=== PATIENT | male | born 1940 | race Caucasian/White ===

== ENCOUNTER → 2016-10-18 | Outpatient (CLI) | payer OTHER, MEDICARE ==
[~2016-10-18] MED LIST: COLACE100 MG PO; COUMADIN ** IA5 MG PO; FISH OIL 1,2001 EACH PO; K-TAB ER10 MEQ PO; LASIX40 MG PO; LIPITOR40 MG PO; MAG-OX-400(241400 MG PO; NORCO 5-325 TA1 EACH PO; TOPROL XL25 MG PO; TUMS REGULAR ST1 TAB PO; TYLENOL EXTRA500 MG PO; TYLENOL325 MG PO; ULTRAM50 MG PO; WARFARIN SODIU7.5 MG PO; ZOFRAN4 MG PO
[2016-10-18 17:50] LABS: ANION GAP 10.5 (10.0-19.0); BLOOD UREA NITROGEN 11 mg/dL (6-24); CALCIUM 8.4 mg/dL (8.5-10.5); CHLORIDE 99 mMol/L (96-110); CO2 28 mMol/L (22-32); CREATININE 0.6 mg/dL (0.6-1.3); ESTIMATED GFR (MDRD EQUATION) > 60; MAGNESIUM 2.3 mg/dL (1.3-2.6); POTASSIUM 4.5 mMol/L (3.7-5.1); SODIUM 133 mMol/L (135-145)
== END | disposition disaster alternative care site (69) ==
LOC: LNHI 17:24
PROVIDERS: Internal Medicine Cardiovascular Disease
DX: I50.22 Chronic systolic (congestive) heart failure (principal); I49.3 Ventricular premature depolarization

== ENCOUNTER 2017-04-01 20:04 | Inpatient (IN) | payer OTHER, MEDICARE ==
[~2017-04-01] VITALS: Ht 177.8 cm; Wt 91.2 kg
--- NOTE | ~2017-04-01 | HP ---
PATIENT'S NAME: OLI HOLCOMB [facility] AGE: 77 Y [address] ROOM: [address] [place], [place] [address] LOCATION: [facility] ADMIT DATE: 04/01/2017 History & Physical DISCHARGE DATE: FAMILY PHYSICIAN: Parviz Briseno MD ATTENDING PHYSICIAN: Meliton Camejo DATE OF SERVICE: CHIEF COMPLAINT: Right hip pain. HISTORY OF PRESENT ILLNESS: This 77-year-old male was out in his garden, tying up some plants, when he tripped and fell landing on a combination of dirt and cement on his right side. He had severe pain in the right groin and was unable to ambulate. He had no blackout spells, dizziness, headaches, blurred vision, or loss of consciousness. He was brought by ambulance to [facility] Emergency Room and evaluated by Dr. Su, where CT scan revealed a comminuted fracture of his right acetabulum. PAST MEDICAL HISTORY: Anticoagulated on Coumadin for atrial fibrillation, history of hypokalemia, hypertension, hypercholesterolemia. MEDICATIONS: 1. Fish oil. 2. Lasix. 3. Lipitor. 4. Magnesium. 5. Toprol. 6. Vitamin D. SOCIAL HISTORY: No recent smoking. Lives with his . FAMILY HISTORY: Positive for hypertension and heart trouble. REVIEW OF SYSTEMS: No recent coughs, cold, fevers, chills, or sore throats. No chest pain, shortness of breath, or trouble breathing. No nausea, vomiting, diarrhea, or constipation. No dysuria, hematuria, hesitancy, or incontinence. No malaise or fevers or skin changes. No audio or visual hallucinations. No psych problems. PATIENT'S NAME: OLI HOLCOMB [facility] AGE: 77 Y [address] ROOM: [id number] [place], [place] [address] LOCATION: [facility] ADMIT DATE: 04/01/2017 History & Physical DISCHARGE DATE: FAMILY PHYSICIAN: Parviz Briseno MD ATTENDING PHYSICIAN: Meliton Camejo SURGERIES: He has had a total knee arthroplasty. PHYSICAL EXAMINATION: GENERAL: He is awake, alert, and oriented x3. Mood and affect appropriate. In minimal distress. VITAL SIGNS: Blood pressure 118/72, pulse 67, respirations 16, temperature 98. HEENT: Atraumatic and normocephalic. PERRL. EOMI. TMs clear. Throat clear. NECK: Supple. CHEST: Clear to auscultation. HEART: Regular rhythm. ABDOMEN: Soft, nontender, without masses. SPINE: Cervical, thoracic, and lumbar spine nontender. EXTREMITIES: He has exquisite pain with movement of his right leg. There is tenderness in the groin, a little swelling, no bruising. NEUROLOGIC: He is alert and oriented. He has good sensation and motor function in lower extremities. Pulses good. Reflexes equal. No edema. IMAGING: CT scan of his lumbar spine shows no acute fractures, but there is a minimally displaced right acetabular fracture. CT of the pelvis demonstrates a comminuted right acetabular fracture with mild displacement. There is a large onel-pelvic hematoma consistent with the fracture. X-rays of the pelvis show comminuted right acetabular fracture with minimal displacement. Right superior and inferior pubic rami fractures. Lumbar spine CT scan shows compression deformity at the inferior endplate of L4, which appears chronic; bilateral L5 spondylolysis with grade 2 spondylolisthesis at L5-S1. No change from previous imaging. CT scan of the cervical spine shows no acute fractures. He has had a fusion at C3-C4 and degenerative changes at cervical multiple intervertebral levels. CT scan of the thoracic spine shows chronic compression fractures at T7 and T8 and degenerative changes throughout. IMPRESSION: 1. Comminuted minimally displaced right acetabular fracture. 2. Old compression fractures of thoracic and lumbar spine. 3. Ground level fall at home, out in the yard. 4. Hypertension. 5. Chronic atrial fibrillation, anticoagulated. PLAN: Conservative treatment. Nonoperative treatment. Bed rest. We will get him up in a chair in a day or two when his pain is less. We will hold his anticoagulation for a day or two to reduce bleeding. Mobilize with physical PATIENT'S NAME: OLI HOLCOMB [facility] AGE: 77 Y [address] ROOM: [address] [place], [place] [address] LOCATION: [facility] ADMIT DATE: 04/01/2017 History & Physical DISCHARGE DATE: FAMILY PHYSICIAN: Parviz Briseno MD ATTENDING PHYSICIAN: Meliton Camejo therapy over time, it is going to require several months, he will require temporary detention placement. I discussed details of the treatment plan with the patient, risks and benefits. He understands and desires to proceed as planned. I have also spoken with Dr. Briseno who will also be seeing him. MD JOSE A SUAREZ/phi /[id number] CC: Parviz Briseno MD D: [id number] T: [id number] HISTORY & PHYSICAL
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
--- NOTE | ~2017-04-01 | CON ---
PATIENT'S NAME: OLI HOLCOMB [facility] AGE: 77 Y [address] ROOM: [place] [address] LOCATION: [facility] ADMIT DATE: 04/01/2017 Consultation DISCHARGE DATE: FAMILY PHYSICIAN: Parviz Briseno MD ATTENDING PHYSICIAN: Meliton Camejo Consult for Dr. Briseno. HISTORY OF PRESENT ILLNESS: This 77-year-old gentleman is referred for GIRP/rehab evaluation. He is status post falling incident and fracture comminuted of the right acetabulum. He is at the present time weightbearing as toe-touch and not a surgical candidate yet. He has history of the following, 1. Dyslipidemia. 2. Atrial fibrillation, status post pacemaker placement. 3. Hypertension. 4. Hypokalemia, now corrected. 5. Osteoporosis. On anticoagulants at the present time. Alert and oriented. He is hard of hearing. Vitals are as follows. Blood pressure 130/72, temperature 97.9, pulse 67, respirations 16. He is 5 feet 10 inches tall and weighs 91.2 kg. He is normocephalic. No abnormality. Cranial nerves 2 through 12 are within normal limits except for hearing. Neck is supple. Trachea is central. Chest moving equally and regular. Left upper quadrant pacemaker placement under skin. He denied any cough, shortness of breath, chest pain or difficulty with his breathing. He is at the present time on the following medications. 1. Toprol. 2. Lasix. 3. Vitamin D3. 4. Zofran. 5. Morphine sulfate. 6. MOM. PATIENT'S NAME: OLI HOLCOMB [facility] AGE: 77 Y [address] ROOM: [place] [address] LOCATION: [facility] ADMIT DATE: 04/01/2017 Consultation DISCHARGE DATE: FAMILY PHYSICIAN: Parviz Briseno MD ATTENDING PHYSICIAN: Meliton Camejo 7. Dos Rios. 8. Lipitor. 9. KCl. 10. Mag-oxide 400. 11. Warren-3. 12. Colace. 13. Lopressor. ASSESSMENT AND PLAN: We will evaluate at the present time to go on with PT/OT, please see the orders. Weightbearing toe-touch on the right lower extremity. We will plan to take him to rehab if he is qualified, provided he is okayed by his care. Thank you for this referral. He will be with us for about 2 weeks or so, aiming to discharge on modified independence. All the above was explained to him in detail. He verbalized understanding and agreement. MD MEAGHAN XIE/phi /[id number] d: 04/03/17 1259 t: 04/04/17 0719, CONSULTATION REPORT
--- NOTE | ~2017-04-01 | CON ---
PATIENT'S NAME: OLI SIEGEL [facility] AGE: 77 Y [address] ROOM: [address] [address] LOCATION: [facility] ADMIT DATE: 04/01/2017 Consultation DISCHARGE DATE: FAMILY PHYSICIAN: Parviz Briseno MD ATTENDING PHYSICIAN: Meliton Camejo DATE OF CONSULTATION: 04/05/2017 HISTORY OF PRESENT ILLNESS: Mr. Siegel fell at home in the yard on April 01, 2017. He is now complaining of pain in his right shoulder, which he did not complain of initially. It hurts to lay on it, keeps him up at night. He denies numbness or tingling. He also has some right chest wall pain. He has fractures of ribs on the right side. No history of surgery or fracture on the right shoulder. The patient is worse with activity, relieved by rest. PHYSICAL EXAMINATION: MUSCULOSKELETAL: His right shoulder is mildly tender in the AC joint, subacromial area. He abducts and flexes 160 degrees, internally and externally rotates 70 degrees with mild pain. Impingement sign is mildly positive. Drop sign negative. There is no warmth, redness, or ecchymosis. His neck moves well. Spurling sign is negative. He has good sensation and motor function in the right upper extremity. Pulses are good. Reflex is equal. Mood and affect appropriate, oriented x3. IMAGING STUDY: X-rays of his right shoulder AP and lateral show some AC arthritis with sclerosis and osteophytes. The glenohumeral joint is well reduced and has good joint space. There are no fractures identified. DIAGNOSIS: Acromioclavicular arthritis, right shoulder. His INR is 7.2 today. We had stopped his Coumadin on Sunday and Sunday. He resumed it on Sunday. PLAN: We will hold off transfer to inpatient rehab until his INR drops below 6. Go easy with therapy today. Regarding his shoulder, he can use it as tolerated. If the pain does not improve in the next week or two, we might consider steroid injection. Regarding his fractured ribs, those should heal uneventfully. There is no evidence of any serious complication of the rib fractures. PATIENT'S NAME: OLI SIEGEL [facility]ALLERO [facility] AGE: 77 Y [address] ROOM: [address] [address] LOCATION: [facility] ADMIT DATE: 04/01/2017 Consultation DISCHARGE DATE: FAMILY PHYSICIAN: Parviz Briseno MD ATTENDING PHYSICIAN: Meliton Camejo MD DEEP SUAREZA/mathewl /[id number] d: 04/06/17 1027 t: 04/11/17 1000, CONSULTATION REPORT
--- NOTE | ~2017-04-01 | DS ---
PATIENT'S NAME: OLI HOLCOMB [facility] AGE: 77 Y [address] ROOM: [place] [address] LOCATION: [facility] ADMIT DATE: 04/01/2017 Discharge Summary DISCHARGE DATE: 04/06/2017 FAMILY PHYSICIAN: Parviz Briseno MD ATTENDING PHYSICIAN: Meliton Camejo DISCHARGE DIAGNOSES: 1. Fracture of right hip acetabulum. 2. Right rib fractures. 3. Hypertension. 4. Chronic diastolic congestive heart failure. 5. Atrial fibrillation. 6. Elevated fasting glucose. 7. Chronic anticoagulation. PROCEDURES DURING ADMISSION: None. CONSULTS DURING ADMISSION: 1. Dr. Meliton Camejo. 2. PT/OT. 3. Care Management. HOSPITAL COURSE: The patient is a 77-year-old male, who presented to the emergency room after doing a ground level fall. The patient was found to have a comminuted, minimally displaced right acetabular fracture along with some rib fractures and some right shoulder pain. The patient was admitted, and his Coumadin was held for a couple of days and then restarted. The patient's hypertension and CHF remained controlled during his hospital stay. The patient was started on PT and was given initially IV pain medicines and then transferred to oral pain medicines for pain control. Upon day of discharge, the patient was tolerating PT, eating well, and ready to be transitioned to an extended stay unit. DISCHARGE CONDITION: Stable. DISPOSITION: Inpatient rehab. DISCHARGE MEDICATIONS: Please see list. DISCHARGE INSTRUCTIONS: The patient will be sent to inpatient rehabilitation to continue to work with Physical Therapy to make him stronger and able to then function at home. PATIENT'S NAME: OLI HOLCOMB [facility] AGE: 77 Y [address] ROOM: [address] [address] LOCATION: N ADMIT DATE: 04/01/2017 Discharge Summary DISCHARGE DATE: 04/06/2017 FAMILY PHYSICIAN: Parviz Briseno MD ATTENDING PHYSICIAN: Meliton Camejo MD JORGE TEJEDAG/mathewl /[id number] d: 04/18/17806 t: 04/29/17 1015, DISCHARGE SUMMARY
[~2017-04-01 20:04] MED LIST changes: -COLACE100 MG PO; -TUMS REGULAR ST1 TAB PO
[2017-04-01 20:39] LABS: BASOPHIL % 0.4 %; EOSINOPHIL # 0.1 K/uL (0.0-0.5); EOSINOPHIL % 1.6 %; HEMATOCRIT 40.3 % (37.0-53.0); HEMOGLOBIN 13.7 g/dL (11.0-16.0); IMMATURE GRANULOCYTE # 0.1 K/uL (0.0-0.3); IMMATURE GRANULOCYTE % 0.7 %; LYMPHOCYTE # 2.2 K/uL (0.8-4.0); LYMPHOCYTE % 30.5 %; MCH 30.7 pg (27.0-34.0); MCV 90.4 fl (83.0-98.0); MONOCYTE # 0.9 K/uL (0.0-1.0); MONOCYTE % 11.9 %; MPV 9.1 fl (9.4-12.4); NEUTROPHIL % 54.9 %; NRBC % 0 /100WBC (0-0.00); PLATELET COUNT 187 K/uL (150-450); RBC 4.46 M/uL (3.50-5.50); RDW-CV 13.7 % (11.9-14.6); WBC 7.3 K/uL (4.0-11.0)
[2017-04-01 20:46] LABS: INR - (THERAPEUTIC) 2.77 (0.92-1.07); PROTIME 29.4 SECONDS (9.8-11.4)
[2017-04-01 20:56] LABS: ALBUMIN 3.7 gm/dL (3.5-5.0); ALK PHOS 55 IU/L (33-138); ALT 36 IU/L (12-78); ANION GAP 12.3 (10.0-19.0); AST 32 IU/L (10-40); BLOOD UREA NITROGEN 14 mg/dL (6-24); CALCIUM 8.6 mg/dL (8.5-10.5); CHLORIDE 96 mMol/L (96-110); CO2 26 mMol/L (22-32); CREATININE 0.7 mg/dL (0.6-1.3); POTASSIUM 4.3 mMol/L (3.7-5.1); SODIUM 130 mMol/L (135-145); TOTAL BILIRUBIN 1.1 mg/dL (0.0-1.5); TOTAL PROTEIN 6.9 g/dL (6.0-8.4)
[2017-04-05 06:14] LABS: PROTIME 79.2 SECONDS (9.8-11.4)
[2017-04-05 06:17] LABS: INR - (THERAPEUTIC) 7.39 (0.92-1.07)
[2017-04-06 05:38] LABS: PROTIME 61.7 SECONDS (9.8-11.4)
[2017-04-06 05:44] LABS: INR - (THERAPEUTIC) 5.77 (0.92-1.07)
== END 2017-04-06 10:15 | DRG 536 ==
LOC: GACC 20:04 → G3N 23:04
PROVIDERS: Emergency Medicine; Family Medicine; ADMIT Orthopaedic Surgery
DX: S32.401A Unspecified fracture of right acetabulum, initial encounter for closed fracture (principal); I50.22 Chronic systolic (congestive) heart failure; I48.2 Chronic atrial fibrillation; S22.31XA Fracture of one rib, right side, initial encounter for closed fracture; I10 Essential (primary) hypertension; Z79.01 Long term (current) use of anticoagulants; M13.811 Other specified arthritis, right shoulder; E87.6 Hypokalemia; E78.00 Pure hypercholesterolemia, unspecified; Z87.311 Personal history of (healed) other pathological fracture; W18.30XA Fall on same level, unspecified, initial encounter; Y92.017 Garden or yard in single-family (private) house as the place of occurrence of the external cause; Z95.0 Presence of cardiac pacemaker; M81.0 Age-related osteoporosis without current pathological fracture
CPT/HCPCS: J1170; J2270; J2405; Q9967

== ENCOUNTER → 2017-04-01 | Outpatient (CLI) | payer OTHER, MEDICARE | END | disposition disaster alternative care site (69) | LOC: GAMB 19:48 | DX: S39.92XA Unspecified injury of lower back, initial encounter (principal); M54.5 Low back pain; M25.551 Pain in right hip; I10 Essential (primary) hypertension; Z79.899 Other long term (current) drug therapy; Z88.0 Allergy status to penicillin; Z88.8 Allergy status to other drugs, medicaments and biological substances; W01.0XXA Fall on same level from slipping, tripping and stumbling without subsequent striking against object, initial encounter | CPT/HCPCS: A0425; A0429 ==

== ENCOUNTER 2017-04-06 10:46 | Inpatient (IN) | payer OTHER, MEDICARE ==
[~2017-04-06] VITALS: Ht 172.7 cm; Wt 86.0 kg
--- NOTE | ~2017-04-06 | HP ---
PATIENT'S NAME: OLI HOLCOMB [facility] AGE: 77 Y [address] ROOM: [place] [address] LOCATION: [facility] ADMIT DATE: 04/06/2017 History & Physical DISCHARGE DATE: FAMILY PHYSICIAN: Parviz Briseno MD ATTENDING PHYSICIAN: Faisal Wu DATE OF SERVICE: HISTORY OF PRESENT ILLNESS: This 77-year-old gentleman was admitted to rehab unit at [facility] on 04/06/2017 for continuous medical treatment and intensive rehabilitation. 1. Status post a fall incident with comminuted right hip fracture and at high risk of falling. 2. He is at the present time, toe-touch weightbearing on the right lower extremity. 3. He is admitted for continuous medical treatment and intensive rehabilitation. Alert and oriented. Vitals on admission; blood pressure 127/64, temperature 97.8, pulse 67, respirations 16. He is 5 feet 10 inches tall and weighs 91.2 kg. ALLERGIES: SULFA, PENICILLIN AND AMIODARONE ARE REPORTED. CURRENT MEDICATIONS: He is at the present time on the following medications: 1. Lipitor 40 mg p.o. daily. 2. Colace 100 mg p.o. b.i.d. 3. Lasix 40 mg p.o. daily. 4. Magnesium oxide 400, give 400 mg p.o. daily. 5. Toprol-XL 25 mg p.o. daily. 6. K-Tab 10 mEq p.o. daily. 7. [place] 5/325 one to two tablets p.o. q.4 hours. Do not exceed acetaminophen 4 g q.24 hours total. 8. Tylenol Extra Strength 500-1000 q.6 hours, do not exceed acetaminophen 4 g q.24 hours. 9. Zofran 4 mg IV or p.o. q.4 hours p.r.n. 10. Coumadin on hold at the present time. INR is followed by [facility] regularly, went up to one time 7.5. 11. Fish oil 1200 mg when he was on the other unit. 12. Fish oil 1200 mg p.o. twice daily. At the present time, he is alert, able to follow instructions and can move PATIENT'S NAME: OLI HOLCOMB [facility] AGE: 77 Y [address] ROOM: [address] [place] [address] LOCATION: [facility] ADMIT DATE: 04/06/2017 History & Physical DISCHARGE DATE: FAMILY PHYSICIAN: Parviz Briseno MD ATTENDING PHYSICIAN: Faisal Wu bilateral upper and lower extremity. He is toe-touch weightbearing on the right lower extremity. PAST MEDICAL HISTORY: Past history of significance is as follows: 1. History of atrial fibrillation and on Coumadin. 2. History of hypokalemia and at the present time, corrected and followed. 3. Hypertension. 4. Dyslipidemia. 5. Osteoporosis. 6. Coronary artery disease. 7. Congestive heart failure. LABORATORY DATA: His lab work today and 04/07/2017 is as follows: 1. CBC: White BC 6.9, RBC 3.08, hemoglobin 9.8, hematocrit 28.2, platelets 131. 2. CMS: Sodium 135, potassium 4.4, chloride 102, CO2 26, BUN 14, creatinine 0.5, and glucose 125. 3. On 04/07/2017, his INR is 3.79, [facility] following. 4. UA: Rare bacteria and eGFR more than 90. 5. Prealbumin 19. RECOMMENDATIONS AND PLAN: 1. He is toe-touch at the present time, slow. 2. We will put on intensive PT/OT, 3 hours per day, 15 hours per week for the coming 2 weeks or so, aiming to 2-3 weeks and discharge home on modified independent. We will keep on Dr. Camejo and Dr. Briseno census to follow as necessary. 3. We will follow INR daily for the time being. 4. He is on regular diet and will continue to follow. All the above was explained to him. He verbalized understanding and agreement with plan of care. FAISAL WU MD WMS/modl /[id number] D: T: HISTORY & PHYSICAL
--- NOTE | ~2017-04-06 | CON ---
PATIENT'S NAME: OLI HOLCOMB [facility] AGE: 77 Y [address] ROOM: [address] [place], [place] [address] LOCATION: [facility] ADMIT DATE: 04/06/2017 Consultation DISCHARGE DATE: 04/25/2017 FAMILY PHYSICIAN: Parviz Briseno MD ATTENDING PHYSICIAN: Faisal Wu DATE OF CONSULTATION: 04/24/2017 REFERRING PHYSICIAN: Meliton Camejo MD TEAM MEMBERS REPORTING: Include Dr. Wu; Jennifer Brandt, social human services assistants; inpatient rehab nursing staff; Aishwarya Childers, PT; Mine Baig, PT; Vandana James, OT; Ernestine Muller, Speech Therapy; Melanie Ahuja, therapeutic rec; and Sister Clarissa Orozco, Pastoral Care. CURRENT STATUS: Negin Greer is a 77-year-old man, admitted to our inpatient rehab unit following a right acetabular fracture. He also had right rib fracture. He has a history of hypertension, chronic diastolic congestive heart failure, atrial fibrillation, and chronic anticoagulation. He takes [place] every 4 hours. Still is on a regular diet. He is at low nutritional risk. His prealbumin is at 12. He can complete all of his transfers at mod I. He can walk 50 feet at standby assistance. He can climb 4 stairs going at minimal assistance, down contact guard assistance. He has met / long-term PT goals. He can dress his upper body and lower body, standby assistance. Bathing standby assistance; toilet and shower transfers, standby assistance; toileting, standby assistance; feeding independent and home management tasks, standby assistance. He has met 07/02 long-term OT goals. The patient likes to visit he does like prior. He has been given handicap parking permit. DISCHARGE PLAN: The patient is receiving 3 hours of PT, OT Sunday through Sunday. The patient has daily rehab, nursing, and physiatry involvement as well as therapeutic recreational services 4 days per week. The patient has shown functional improvement and is progressing. Please see his plan of care for specific goals. Plan is for the patient to discharge on Tuesday, April 25, 2017. The patient will go home with outpatient therapy services. He will have a hospital bed and a wheelchair. JENNIFER BRANDT FOR FAISAL WU MD TD/phi PATIENT'S NAME: OLI HOLCOMB [facility] AGE: 77 Y [address] ROOM: [place] [address] LOCATION: [facility] ADMIT DATE: 04/06/2017 Consultation DISCHARGE DATE: 04/25/2017 FAMILY PHYSICIAN: Parviz Briseno MD ATTENDING PHYSICIAN: Faisal Wu /[id number] d: t: 05/03/17 2207, CONSULTATION REPORT
--- NOTE | ~2017-04-06 | DS ---
PATIENT'S NAME: OLI HOLCOMB [facility] AGE: 77 Y [address] ROOM: [address] [place], [place] [address] LOCATION: [facility] ADMIT DATE: 04/06/2017 Discharge Summary DISCHARGE DATE: FAMILY PHYSICIAN: Parviz Briseno MD ATTENDING PHYSICIAN: Faisal Wu This 77-year-old gentleman was admitted to Rehab Unit at [facility], [place], [place] on 04/06/2017 and is to be discharged on 04/25/2017. 1. Unstable gait. 2. Dependent activities of daily self-care. 3. Status post falling incident and fracture of the right acetabulum; at the present time, toe-touch or touchdown weightbearing on the right leg. He is at the present time doing well, alert, oriented x3. VITAL SIGNS: Blood pressure 113/58, temperature 98.3, pulse 71, and respirations 16. His PT on 04/23/2017 was 22.7 and INR [address] Briseno his family physician is following. We will do a PT and INR in a.m. on 04/25/2017 before discharge. He is at the present time on 5 mg Coumadin and adjusting of Coumadin and/or followup as per his family physician Dr. Briseno. Please see the orders. He is at the present time doing well, able to ambulate up to 50 feet x1 with good compliance with toe-touch on the right-side. He is at the present time on the following medications: 1. Lipitor 40 mg p.o. daily. 2. Colace 100 mg p.o. daily. 3. Lasix 40 mg p.o. daily. 4. Megace 400 mg twice daily. 5. Toprol-XL 25 mg p.o. daily. 6. Fish oil 1000 mg p.o. b.i.d. 7. K tablet 10 mEq p.o. twice daily. 8. Coumadin 5 mg p.o. daily for Sunday, Sunday, and Sunday. 9. Coumadin 7.5 mg p.o. for 2 days of the other 2 days of the week. 10. [place] 5/325 1 tablet p.o. q.4 h., as needed, give 36 and renewal per his family physician please. 11. Tums 1000 mg p.o. p.r.n. 12. Fish oil 1200 mg p.o. b.i.d. 13. Tylenol Extra Strength 500 to 1000 q.6 h., do not exceed acetaminophen 4 g q.24 h. He is given outpatient PT/OT 2 to 3 times per week for the coming 4 weeks and PATIENT'S NAME: OLI HOLCOMB [facility] AGE: 77 Y [address] ROOM: [place] [address] LOCATION: [facility] ADMIT DATE: 04/06/2017 Discharge Summary DISCHARGE DATE: FAMILY PHYSICIAN: Parviz Briseno MD ATTENDING PHYSICIAN: Faisal Wu I will see him thereafter. FINAL DIAGNOSES: 1. Unstable gait. 2. Dependent activities of daily self-care. 3. Status post fall with fracture of the right hip acetabulum, toe-touch at the present time or touchdown on the right lower extremity at the present time. 4. Elevated fasting glucose per history. 5. Hypertension. 6. Right rib fracture, stable. 7. Atrial fibrillation and on Coumadin, chronic anticoagulant. 8. Chronic diastolic congestive heart failure. 9. Arthritis, especially bilateral shoulders, chronic. 10. Coronary artery disease per history. The patient is not to drive until he is reevaluated, he should follow with his family physician as soon as possible and follow up with Dr. Camejo as Dr. Camejo sees fit. All the above was explained to him in detail. He verbalized understanding and agreement with plan of care. FAISAL WU MD WMS/modl /[id number] d: 04/25/17228 t: 04/25/17 07, DISCHARGE SUMMARY
--- NOTE | ~2017-04-06 | CON ---
PATIENT'S NAME: OLI HOLCOMB [facility] AGE: 77 Y [address] ROOM: [id number] [place], [place] [address] LOCATION: [facility] ADMIT DATE: 04/06/2017 Consultation DISCHARGE DATE: FAMILY PHYSICIAN: Parviz Briseno MD ATTENDING PHYSICIAN: Faisal Wu DATE OF CONSULTATION: 04/10/2017 REFERRING PHYSICIAN: Meliton Camejo MD TEAM MEMBERS REPORTING: Dr. Wu; Jennifer Brandt, renal social worker; inpatient rehab nursing team; Aishwarya Childers, PT; Mine Baig, PT; Vandana James, OT; Ernestine Muller, Speech Therapy; Melanie Ahuja, therapeutic rec; and Sister Clarissa Duenas, Pastoral Care. CURRENT STATUS: Percy is a 77-year-old man, admitted to our inpatient rehab unit on April 06, 2017. The patient had fallen at home and was admitted with a fractured right hip. The patient also had right rib fractures. He has a history of dyslipidemia, atrial fibrillation, hypertension, pacemaker, osteoarthritis. The patient is currently continent of bowel and bladder. He does have some bruising on his skin. Takes [place] for pain. He is on a regular diet. Intake is 75% to 100%. No nutritional concerns at this time. He can transfer, sit to supine at minimal assistance; supine to sit, moderate assistance; sit to stand, contact guard assistance; bed to chair, contact guard assistance using a front-wheeled walker. He is able to walk about 6 feet and 8 feet in the parallel bars. Stairs have not been done yet. He can dress his upper body at standby; lower body moderate assistance using adaptive equipment; grooming, standby; bathing, minimal assistance; toilet and shower transfers, contact guard assistance; toileting, dependent; feeding, standby assistance. He has met 09/01 long-term OT goals set at standby assistance. The patient has no spiritual preference at this time. DISCHARGE PLAN: The patient is receiving 3 hours of PT, OT Sunday through Sunday. The patient has daily rehab, nursing, and physiatry involvement as well as therapeutic recreational services. The patient has shown functional improvement and is progressing. Please see his plan of care for specific goals. Plan is for patient to discharge in approximately 10 to 14 days. The patient does plan to return to home in [place] with his . JENNIFER BRANDT FOR FAISAL WU MD PATIENT'S NAME: OLI HOLCOMB [facility] AGE: 77 Y [address] ROOM: [place] [address] LOCATION: [facility] ADMIT DATE: 04/06/2017 Consultation DISCHARGE DATE: FAMILY PHYSICIAN: Parviz Briseno MD ATTENDING PHYSICIAN: Faisal Wu TD/mathewl /[id number] P d: 04/17/17 1508 t: 04/30/17 1127, CONSULTATION REPORT
--- NOTE | ~2017-04-06 | CON ---
PATIENT'S NAME: OLI HOLCOMB [facility] AGE: 77 Y [address] ROOM: [id number] [place], [place] [address] LOCATION: [facility] ADMIT DATE: 04/06/2017 Consultation DISCHARGE DATE: 04/25/2017 FAMILY PHYSICIAN: Parviz Briseno MD ATTENDING PHYSICIAN: Faisal Wu DATE OF CONSULTATION: 04/17/2017 REFERRING PHYSICIAN: Meliton Camejo MD Team members reporting include Dr. Wu; Jennifer Brandt, clinical social worker; inpatient rehab nursing staff; Aishwarya Childers, PT; Venessa Baig, PT; Vale Berg, OT; Ernestine Muller, Speech Therapy; Melanie Ahuja, therapeutic rec; and Sister Clarissa Duenas, Pastoral Care. CURRENT STATUS: Percy is a 77-year-old man, admitted to our inpatient rehab unit on April 06, 2017 following a right acetabular fracture, right rib fractures. He also has a history of hypertension, chronic diastolic congestive heart failure, atrial fibrillation, elevated fasting glucose, and chronic anticoagulation. The patient is continent of bowel and bladder. He is on a regular diet. He can transfer [id number] and xxzasi-mn-euq, contact guard assistance to minimal assistance; lcg-zn-omrje and cwpwx-oa-[id number], standby assistance; and bed- to-chair and elyix-ay-bqi, standby assistance. He can walk 50 feet with contact guard assistance using a front-wheeled walker. He can climb 4 stairs with 2 railings going at minimal assistance, down contact guard assistance. He has met 3 long-term PT goals. The patient can dress his upper body at standby; lower body, contact guard assistance; grooming, standby assistance; bathing, minimal assistance; toilet transfers, contact guard assistance; shower transfers, contact guard assistance; feeding, independent. He is getting ultrasound of his right shoulder for pain. He has met 3/13 long-term OT goals. Car transfers have not been done yet. He does like to visit with Pastoral Care. DISCHARGE PLAN: The patient is receiving 3 hours of PT, OT Sunday through Sunday. The patient has daily rehab, nursing, and physiatry involvement as well as therapeutic recreational services 4 days per week. The patient has shown functional improvement and is progressing. Please see his plan of care for specific goals. Plan is for the patient to discharge in approximately 1 week. Plan is for the patient to discharge home with his here in [place]. JENNIFER AKI FOR FAISAL WU MD PATIENT'S NAME: OLI HOLCOMB [facility] AGE: 77 Y [address] ROOM: [address] [address] LOCATION: [facility] ADMIT DATE: 04/06/2017 Consultation DISCHARGE DATE: 04/25/2017 FAMILY PHYSICIAN: Parviz Briseno MD ATTENDING PHYSICIAN: Faisal Wu TD/modl /[id number] d: t: 05/03/17 2217, CONSULTATION REPORT
--- NOTE | 2017-04-06 12:16 | NUR ---
Pt is 77 y/o male admit to inpatient rehab from for a fx acetabulum. Pt alert and oriented x3. Resides at home with his . Pt states he was working in the garden and caught his foot and fell. He was unable to ambulate after this. He also had some rib fx's. Hx pacemaker,AICD,arthritis,CHF-see data base for complete hx. Allergies to sulfa and amiodarone. Red and yellow bracelets.
--- NOTE | 2017-04-06 16:54 | NUR ---
Significant Event:PATIENT ADMITTED TO ROOM 3433 FROM 3N VIA WHEELCHAIR AT 1030. PATIENT FELL AND HAS A FX'D ACETABULUM AND FX'D RIBS. HE HAS SEVERAL BRUISES ON HIS RIGHT SIDE AND A SCAB PRESENT ON HIS ELBOW. VSS. TRANSFERS WITH 2 ASSIST, GAIT BELT AND WALKER. IS TOE TOUCH WEIGHT BEARING TO RIGHT LEG. COMPLAINTS OF PAIN IN HIS RIGHT SIDE BUT ALSO HAS CHRONIC PAIN IN HIS BACK FROM SOME PREVIOUS COMPRESSION FX'S. GIVEN NORCO 1 TAB PO AT 1305. LIKES TO HAVE IT EVERY 4 HOURS FOR THE PAIN. HE IS NON COMPLIANT WITH TRANSFERS SO NEEDS TO BE WATCHED CLOSELY WHEN TRANSFERRING TO MAINTAIN TOE TOUCH WEIGHT BEARING. NO OTHER COMPLAINTS. Follow up:
[2017-04-06 17:08] LABS: BILIRUBIN URINE NEGATIVE (NEGATIVE); BLOOD URINE 150 /UL (NEGATIVE); COLOR URINE YELLOW (YELLOW); GLUCOSE URINE NEGATIVE (NEGATIVE); KETONE URINE 5 mg/dL (NEGATIVE); LEUKOCYTES URINE 100 /UL (NEGATIVE); NITRITE URINE NEGATIVE (NEGATIVE); PROTEIN URINE 30 mg/dL (NEGATIVE); SPEC GRAVITY URINE 1.025 (1.003-1.035); TURBIDITY URINE 3+ (CLEAR); UROBILINOGEN URINE 1 mg/dL (NORMAL)
[2017-04-06 17:25] LABS: RBC URINE 20-50 #/HPF (NEGATIVE)
[2017-04-06 17:26] LABS: AMORPHOUS URINE 1+ (NEGATIVE); BACTERIA URINE RARE (NEGATIVE); MUCUS URINE 2+ (NEGATIVE)
--- NOTE | 2017-04-07 04:32 | NUR ---
Significant Event: A/O x3. transfers with 2 assist, and walker ttwb to right leg. denies n/t. csm adequate. norco twice this shift, last at 0430. please offer [place] q4h. has bruises to right side and scab to lright elbow. labs for this am. UA done to shower and dress with OT at 0700. Follow up:
[2017-04-07 05:42] LABS: BASOPHIL % 0.1 %; EOSINOPHIL # 0.1 K/uL (0.0-0.5); EOSINOPHIL % 1.6 %; HEMOGLOBIN 9.8 g/dL (11.0-16.0); IMMATURE GRANULOCYTE % 0.3 %; LYMPHOCYTE % 14.6 %; MCV 91.6 fl (83.0-98.0); MONOCYTE # 0.8 K/uL (0.0-1.0); MONOCYTE % 11.2 %; MPV 9.3 fl (9.4-12.4); NEUTROPHIL % 72.2 %; NRBC % 0 /100WBC (0-0.00); RDW-CV 14.1 % (11.9-14.6); WBC 6.9 K/uL (4.0-11.0)
[2017-04-07 05:45] LABS: HEMATOCRIT 28.2 % (37.0-53.0); MCH 31.8 pg (27.0-34.0); MCHC 34.8 gm/dL (32.0-36.5); PLATELET COUNT 131 K/uL (150-450); RBC 3.08 M/uL (3.50-5.50)
[2017-04-07 05:53] LABS: INR - (THERAPEUTIC) 3.79 (0.92-1.07); PROTIME 40.3 SECONDS (9.8-11.4)
[2017-04-07 05:57] LABS: ALBUMIN 2.7 gm/dL (3.5-5.0); ALK PHOS 41 IU/L (33-138); ALT 27 IU/L (12-78); ANION GAP 11.4 (10.0-19.0); AST 25 IU/L (10-40); BLOOD UREA NITROGEN 14 mg/dL (6-24); CHLORIDE 102 mMol/L (96-110); CO2 26 mMol/L (22-32); CREATININE 0.5 mg/dL (0.6-1.3); POTASSIUM 4.4 mMol/L (3.7-5.1); SODIUM 135 mMol/L (135-145); TOTAL PROTEIN 5.9 g/dL (6.0-8.4)
[2017-04-07 05:59] LABS: TOTAL BILIRUBIN 1.4 mg/dL (0.0-1.5)
--- NOTE | 2017-04-07 15:54 | NUR ---
Significant Event: PATIENT UP 1-2 ASSIST, WALKER, GAIT BELT, TOE TOUCH WEIGHT BEARING TO RIGHT LEG. PATIENT MOVES VERY WELL BUT INSISTS THAT HE HAVE 2 PEOPLE HELPING HIM, REQUIRES VERY LITTLE ASSISTANCE IN PIVOTING TO CHAIR AND TOILET. CONTINENT OF BOWEL AND BLADDER. ALERT AND ORIENTED X3. VITALS STABLE ON ROOM AIR. SHOWERED WITH THERAPY THIS AM. BM TODAY. FEEDS SELF WITHOUT DIFFICULTY. MEDS WHOLE WITH WATER. NORCO FOR PAIN, EXPECTS MEDICATION PRECISELY 4 HOURS APART. HAS A PACER. CPAP AT NIGHT. Follow up:
--- NOTE | 2017-04-08 04:35 | NUR ---
Significant Event: A/O x3. ecchymosis noted to right flank, arm. up with 2 assist, TTWB to right. norco 2 tabs given. [place] last given at 0100, will give next dose at 0500. patient request to have pain med every 4 hours. takes meds whole with water. Follow up:
[2017-04-08 06:06] LABS: INR - (THERAPEUTIC) 2.52 (0.92-1.07); PROTIME 26.7 SECONDS (9.8-11.4)
--- NOTE | 2017-04-08 13:52 | NUR ---
Significant Event: Alert and oriented x 3. Up with 2A. TTWB. [place] given at 1307. Patient requests to have his [place] every 4 hours on the dot. Takes meds whole with water. Continent of bowel and bladder. Cooperative with cares. Follow up:
--- NOTE | 2017-04-09 04:23 | NUR ---
Significant Event: A/O x3. transfers with 2 assist, TTWB to right. ecchymosis to rt flank,hip,arm. scab to right elbow. CSM adequate. takes meds whole with water. had 2 norco at last at 0240, request to have [place] Q4h. continent of bowel and bladder. had small bm last pati. Follow up:
[2017-04-09 05:23] LABS: INR - (THERAPEUTIC) 2.19 (0.92-1.07); PROTIME 23.2 SECONDS (9.8-11.4)
--- NOTE | 2017-04-09 14:36 | NUR ---
Significant Event:PATIENT ALERT AND ORIENTED THIS SHIFT. VSS. TRANSFERS WITH 2 ASSIST, GAIT BELT AND WALKER. IS TOE TOUCH WEIGHT BEARING ON HIS RIGHT LEG. DOESN'T ALWAYS FOLLOW PRECAUTIONS. COMPLAINS OF PAIN AND TAKES NORCO 2 TABS PO ABOUT EVERY 4 HOURS. LAST DOSE AT 1045 THIS AM. INR TODAY WAS 2.19. WENT OUTSIDE WITH STAFF THIS SHIFT FOR THE ECLIPSE LIBERTARIAN. NO OTHER COMPLAINTS. Follow up:
--- NOTE | 2017-04-10 05:24 | NUR ---
Significant Event: Patient is alert and oriented, VSS. Up 2 assist with GB/Walker TTWB to right leg, pivot transfer to chair. C/O of pain to his right hip/leg/foot and shoulder. Bruising noted to his right elbow, hip and torso. Requests 2 [place] every 4 hrs for pain, states it take to long to play catchup if not given q 4 hrs. Is [place] [facility] [facility] has bilateral hearing aides. Takes meds whole with water. Has had a very small BM this AM. Follow up: Next dose of [place] due at 0700.
[2017-04-10 05:32] LABS: INR - (THERAPEUTIC) 2.48 (0.92-1.07); PROTIME 26.3 SECONDS (9.8-11.4)
--- NOTE | 2017-04-10 13:12 | NUR ---
D: Therapeutic Recreation Initial Assessment on the 04/10/17. I: Patient seen for 2 units at 1305 to begin initial evaluation. Pt has dx of R) hip fx with TTWB. R: Patient's current living situation and status: house Home entrance steps: 3 railings Living with: Spouses name: January # of children: Driving: yes, spouse does drive (SUV) Ambulating: mod I Equipment: cane Hand Dominance: Right Fund Accounting Manager strength: N/T Eye sight: glasses, cataracts Reading ability: N/T Hearing: [place] with aides Speech: clear Cognition: alert Comprehension: fair Following directions: yes Initiating: yes Eye contact: good Affect: flat COMMUNITY INVOLVEMENT: grocery shopping, car rides, out to eat, visit family/friends LEISURE INTERESTS: watch bird feeders (9), dog, occ. Tv, read (newspapers, books), crosswords Patient is referred by medical staff for treatment and evaluation in the following areas: Community Skills, Functional Leisure Skills, Participation, Leisure Education/Behaviors, Family Education Information obtained: Interview, Chart Review, Observation, other. BARRIERS TO LEISURE: Social, Physical, Lifestyle (2 drinks daily) Transportation Patient determined to be: APPROPRIATE FOR THERAPEUTIC RECREATION ASSESSMENT. TREATMENT WILL INCLUDE: Community living skills training Functional leisure development Physical skills development Cognitive skills development Social skills development Leisure education Emotional/behavioral adaptation Family education Community resources/packet TARGET EQUIPMENT/INFORMATION: Parking Permit TO ASSESS NEED Community Resources Energy conservation in community setting Van/Service/Taxi Scrip Adapted Leisure Equipment Stress management/Relaxation techniques Functional car transfers Leisure Education Behaviors: Attitude, Awareness, Participation. Patient functional skills level and potential: Guarded, pt demonstrates poor mobility and pain/stress management. Patient oriented ot TR services on Rehab unit. Pt/family provided input into goals setting and plan of care. Pt's goal is to return to prior lifestyle. P: Target date set with personal goals established. Will continue with POC focusing on pt/family training and education. For additional information please see Nursing Data Base, PT, OT, CM, ST, initial assessments to [facility] and Interdisciplinary Assessments.
--- NOTE | 2017-04-10 13:17 | NUR ---
Significant Event: PATIENT ALERT AND ORIENTED X3. HARD OF HEARING, HEARING AIDS INTACT. FEEDS SELF, MEDS WHOLE WITH WATER. NORCO 2 TABS PRN REQUESTED Q4 HRS. INR TODAY 2.48, COUMADIN 5MG PO ORDEREDT TODAY. VITALS STABLE ON ROOM AIR. UP 2 ASSIST, TTWB TO RIGHT, WALKER, GAIT BELT. DOES MOST AMBULATION WITHOUT HELP BUT REQUESTS 2 ASSIST FOR COMFORT. CONTINENT OF BOWEL AND BLADDER. BM TODAY. BRUISING TO RIGHT HIP/RIBS. REFUSED LASIX THIS AM. REGULAR DIET. Follow up:
--- NOTE | 2017-04-11 03:19 | NUR ---
Significant Event: Patient is alert and oriented, VSS. Up 2 assist with GB/Walker TTWB to right foot. Pivot transfers into w/c. Is continent of bowel and bladder. Has had 2 BMs this shift. Has c/o of pain to his right shoulder hip and foot. Moves very slowly and carefully, has good strength. Anticipates pain. Wants [place] 2 tabs q 4 hrs. Last dose given at 0300. Was given a 1 x dose of Coumadin yesterday. INR to be rechecked today. Very [place]. Had an xray of his pelvis yesterday. Follow up:
[2017-04-11 05:55] LABS: INR - (THERAPEUTIC) 2.83 (0.92-1.07)
--- NOTE | 2017-04-11 11:44 | NUR ---
D: TR progress note for 04/11/17. I: Pt seen for 2 units at 1105 in group session for education on relaxation techniques, stress/pain management, coping strategies, and leisure education. R: Pt seen for functional skills building working on relaxation techniques, stress/pain management, and continued education on coping skills to increase independence in all areas in anticipation for discharge back into community. interaction. Pt actively participated in session, completed functional social communication skills independently which involved personal introduction of self and identification of ways pt dealt with pain/stress prior to hospitalization other than medication. Education completed by verbal discussion on the signs and symptoms the physical stress/pain can cause on the body and it's affects along with identification of coping strategies, relaxation techniques using music, playaways, aromatherapy, breathing exercises and leisure activities. P: Will continue to see to address goals and plan of care.
--- NOTE | 2017-04-11 12:21 | NUR ---
A-SCREENED D/T LOS; NEW ADMIT TO [facility] S/P FX ACETABULUM HT: 68 IN. ADMIT WT(STANDING SCALE): 82.57 KG; CBW(STANDING SCALE): 85.7 KG LABS: NA 135, K+ 4.4, GLU 125, BUN 14, ADMISSIONS CLERK 0.5, ALB 2.7, PREALB 9.0 MEDS: LASIX, MAG-OX, K-TAB, COLACE, ZOFRAN, NORCO, PRN BOWEL MEDS DIET RX: REGULAR. PO INTAKE HAS BEEN 75-100% EST NUTR NEEDS: [id number] KCALS (25-30 KCALS/KG) 86-95 GM PROTEIN (1.0-1.1 GM PROTEIN) 1 ML FLUID/KCAL D-NOT AT NUTRITION RISK; NO NUTRITION DX IDENTIFIED I-CONTINUE W/CURRENT DIET RX M/E-F/U PO INTAKE, WT, LABS AND POC IN 7-9 DAYS
--- NOTE | 2017-04-11 15:01 | NUR ---
Significant Event:PATIENT ALERT AND ORIENTED THIS SHIFT. CAN BE A LITTLE FORGETFUL AT TIMES. VSS. TRANSFERS WITH 1-2 ASSIST, GAIT BELT AND WALKER. LIKES TO HAVE 2 STAFF BUT HAS TRANSFERRED WITH 1 TODAY AND DONE WELL. COMPLAINTS OF INCREASED PAIN BUT STATES THAT THERAPY HAS BEEN HELPING IT AND THE PAIN MEDS HELP WELL. TAKES NORCO 2 TABS PO NEEDED FOR PAIN. LIKES TO HAVE THEM ABOUT EVERY 4 HOURS. LAST DOSE GIVEN AT 1505. NO OTHER COMPLAINTS. Follow up:
--- NOTE | 2017-04-12 02:59 | NUR ---
Significant Event: Patient is alert and oriented. VSS. Up one assist stand pivot, TTWB to his right leg. C/O of pain to his right shoulder and hip/leg. Takes 2 [place] every 4 hrs, also using ice. Anticipates pain. Is continent of bowel and bladder. Is very [place] wears bilateral hearing aides. Follow up:
--- NOTE | 2017-04-12 17:40 | NUR ---
Significant Event: UP TO BR AND RECLINER WITH 1 ASSIST, TOLERATES ACTIVITY FAIR..IS TTWB TO RIGHT LEG..CSM GOOD , HAD SMALL BM, VOIDING OK. HAD NORCO 2 TABS X3 LAST AT 1600. IS REQUESTING TO HAVE PAIN MEDS EVERY 4 HRS... Follow up:
--- NOTE | 2017-04-13 03:23 | NUR ---
Significant Event:A/O. 1 assist with GB and walker to pivot to w/c. TTWb to r) leg. Ecchymosis to left hip starting to resolve. Ice packs to right shoulder and hip for comfort and pain relief. Requests 2 [place] every 4 hours, need to stretch that as we can at almost 4000 mg acetaminophen in 24 hours. Wears glasses and bilateral hearing aides. Soft collar to neck per request for comfort s needed. [facility] this shift. VSS on room air. Meds whole with water. Call light in reach bed alarm on. Follow up:Remind TTWB to right leg. Pain mangement.
[2017-04-13 09:03] LABS: INR - (THERAPEUTIC) 3.54 (0.92-1.07); PROTIME 37.7 SECONDS (9.8-11.4)
--- NOTE | 2017-04-13 10:49 | NUR ---
D: TR progress note for 04/13/17. I: Pt seen for 3 units at 1006 for community integration skills building, functional transfers, and endurance building. R: Pt seen for functional skills building working on mobility, endurance, transfers and functional communication skills to build independence in community skills in anticipation for discharge back into community. Pt taken around [facility] campus both indoors and outdoors by Therapies ( OT/TR) for training, endurance building, safety and community education. Pt propelled WC community distances 200+ feet through thresholds, over throw rugs and around obstacles in gift shop SBA > min assist for safety when rolling at high rate of speed outdoors on slight decline. Pt in store able to navigation through aisles and retrieve items all SBA. Education done on energy conservation and safety when in community utilizing WC. P: Will continue to see to address goals and plan of care.
--- NOTE | 2017-04-13 13:51 | NUR ---
Significant Event: PATIENT UP 1 ASSIST, WALKER, GAIT BELT, TTWB TO RIGHT LOWER EXTREMITY. ALERT AND ORIENTED X3. HARD OF HEARING, HEARING AIDS IN PLACE. VITALS STABLE ON ROOM AIR. CALLS APPROPRIATELY. CONTINENT OF BOWEL AND BLADDER. BM TODAY. FEEDS SELF WELL. MEDS WHOLE WITH WATER. COUMADIN HELD TODAY FOR INR 3.54, RECHECK TOMORROW MORNING. DR. CHISHOLM WILL MANAGE COUMADIN DOSAGE. SOFT NECK BRACE ON. NORCO 2 TABS PRN FOR PAIN, REQUESTS Q4HR, GETS CLOSE TO 4000MG ACETAMINOPHEN LIMIT AT TIMES. TOLERATING THERAPY WELL. Follow up:
--- NOTE | 2017-04-14 04:10 | NUR ---
Significant Event: AAOX3. REGULAR DIET. 1PA WITH FWW/GB AND WHEELCHAIR AT TIMES. AT BEDSIDE FOR START OF SHIFT. PT ABLE TO MAKE NEEDS KNOWN/USES CALL LIGHT APPROPRIATELY. PT HAS TWO HEARING AIDES, BUT IS VERY [place] WHEN NOT IN USE. IS CONTINENT OF BOWEL AND BLADDER. WEARS GLASSES. PNEUMATICS TO BOTH FEET THROUGHOUT SHIFT. HAD 2 SMALL BM'S. 2 NORCO ADMINISTERED X2, NEXT DOSE TO BE GIVEN AROUND 0500. COOPERATIVE WITH CARES. VSS ON RA. Follow up:
[2017-04-14 05:14] LABS: INR - (THERAPEUTIC) 2.98 (0.92-1.07); PROTIME 31.6 SECONDS (9.8-11.4)
--- NOTE | 2017-04-14 17:08 | NUR ---
A&O. VSS. SBA. LS CLEAR. BM X1 TODAY. VD PER BR. REQUESTS PAIN MEDS Q4H. JESSICA THERAPY WELL. CSM WNL. CONT. PLAN OF CARE
--- NOTE | 2017-04-15 02:43 | NUR ---
Significant Event: DARCY IS ALERT AND ORIENTED AMBULATES WITH GB WALKER AND ONE ASSIST. VSS WNL. ON RA. LUNGS CLEAR. CSM WNL. HARD OF HEARING BILATERAL HEARING AIDS AT BEDSIDE IN DISH. REQUESTS 2 TABS NORCO Q 4 HRS TO CONTROL PAIN. PLEASANT AND COORPERATIVE WITH CARES. Follow up:
--- NOTE | 2017-04-15 16:28 | NUR ---
A&O. VSS. 1PA. LS CLEAR. CSM WNL. VD PER BR. BM X1 TODAY. TAKES 2 TAB [place] Q4H LAST AT 1550. ICE TO R SHOULDER AND R HIP.
--- NOTE | 2017-04-16 04:51 | NUR ---
Significant Event: Patient is alert and oriented. VSS. Up one assist pivot transfer. TTWB to his right leg. Patient takes meds whole. Requests his pain meds every 4 hrs. Next dose of [place] is due at 0500. Bowel meds have been adjusted. Follow up:
[2017-04-16 06:12] LABS: BASOPHIL % 0.4 %; EOSINOPHIL # 0.1 K/uL (0.0-0.5); EOSINOPHIL % 2.5 %; HEMATOCRIT 30.5 % (37.0-53.0); HEMOGLOBIN 10.4 g/dL (11.0-16.0); IMMATURE GRANULOCYTE % 0.4 %; LYMPHOCYTE # 1.4 K/uL (0.8-4.0); LYMPHOCYTE % 28.3 %; MCH 31.2 pg (27.0-34.0); MCHC 34.1 gm/dL (32.0-36.5); MCV 91.6 fl (83.0-98.0); MONOCYTE # 0.6 K/uL (0.0-1.0); MONOCYTE % 11.8 %; MPV 8.6 fl (9.4-12.4); NEUTROPHIL # (ANC) 2.7 K/uL (1.4-9.0); NEUTROPHIL % 56.6 %; NRBC % 0 /100WBC (0-0.00); RBC 3.33 M/uL (3.50-5.50); WBC 4.8 K/uL (4.0-11.0)
[2017-04-16 06:16] LABS: PLATELET COUNT 325 K/uL (150-450)
[2017-04-16 06:18] LABS: INR - (THERAPEUTIC) 2.53 (0.92-1.07); PROTIME 26.8 SECONDS (9.8-11.4)
[2017-04-16 06:33] LABS: ALBUMIN 2.8 gm/dL (3.5-5.0); ALK PHOS 177 IU/L (33-138); ALT 24 IU/L (12-78); ANION GAP 9.4 (10.0-19.0); AST 25 IU/L (10-40); BLOOD UREA NITROGEN 8 mg/dL (6-24); CALCIUM 8.2 mg/dL (8.5-10.5); CHLORIDE 101 mMol/L (96-110); CO2 25 mMol/L (22-32); CREATININE 0.4 mg/dL (0.6-1.3); POTASSIUM 4.4 mMol/L (3.7-5.1); SODIUM 131 mMol/L (135-145); TOTAL PROTEIN 6.4 g/dL (6.0-8.4)
--- NOTE | 2017-04-16 10:52 | NUR ---
[facility] Case Management Prefunctioning and Psycho-Social Initial Assessment for 04/06/17 and Case Conference Note for 04/10/17 D: Initial Assignment EditorIntegration Specialist and case conference note. I: Input from: patient, family, Dr. Muhammad, Jennifer Brandt [facility]. R: Reason for admission: right acetabular fracture, right rib fractures, right superior and inferior pubic rami fractures. Admission Date to [facility]: 04/06/17 Admission Date to Hospital: 04/01/17 Prior level of functioning: patient was independent with adl's and household prior to fall with fracture. Prior living situation: two story house Financial resources/expectations: patient has [employer] and Medicare. Admission approved. Resources used: FWW, cane, shower chair, toilet riser. Resources available: HHC, outpatient therapy, SNF, SD, [facility], DME. Family support available: . Understands nature of health condition: yes Recognizes impact of health condition on lifestyle: yes Vocational/Educational: retired Behavior/Emotional needs: cues for safety. Monitor for signs and symptoms of depression and anxiety. Legal concerns: none. Discharge goal: home with support. Assessment: Percy is a 77 year old man from [place] admitted after a fall with right hip fracture. Lives with . Plan is to d/c to home when able. Team conference was held and plan is to keep patient approx. 2 weeks. Will follow and assist as needed. Orientation to the program and CM services completed with Percy. Initial plan of care and estimated length of stay discussed, disclosure statement reviewed including patient assessment rights. P: Target date and individual goals established. Please see POC for details. For additional information please see Nursing Data Base, PT, OT, TR, Initial assessments to [facility].
--- NOTE | 2017-04-16 16:42 | NUR ---
Significant Event: Alert and oriented x 3. Up with 1A pivot transfer. TTWB to right leg. Requests norco every 4hours. Last given at 1331. Will give another dose at 1730. Continent of bowel and bladder. Cooperative with cares. Follow up:
--- NOTE | 2017-04-17 04:45 | NUR ---
Significant Event: Patient is alert and oriented. VSS. Up one assist with GB/Walker. Stand pivot TTWB to his right foot. Has been taking [place] every 4 hrs last dose was at 0000 will be getting another dose before shift end. Follow up:
[2017-04-17 07:04] LABS: ALBUMIN 2.9 gm/dL (3.5-5.0); ALK PHOS 190 IU/L (33-138); ALT 24 IU/L (12-78); ANION GAP 10.6 (10.0-19.0); AST 24 IU/L (10-40); BLOOD UREA NITROGEN 8 mg/dL (6-24); CALCIUM 8.2 mg/dL (8.5-10.5); CHLORIDE 100 mMol/L (96-110); CO2 25 mMol/L (22-32); CREATININE 0.5 mg/dL (0.6-1.3); POTASSIUM 4.6 mMol/L (3.7-5.1); SODIUM 131 mMol/L (135-145); TOTAL BILIRUBIN 0.9 mg/dL (0.0-1.5); TOTAL PROTEIN 6.5 g/dL (6.0-8.4)
--- NOTE | 2017-04-17 14:44 | NUR ---
D: TR progress note for 04/17/17. I: Pt seen for 2 units at 1301 for community integration skills building, safety awareness and functional vehicle transfers. R: Pt seen for functional skills building working on community integration skills, safety and mobility in anticipation for discharge back into community with spouse. Education and simulated demonstration done on proper technique for car transfers along with education on energy conservation in community setting, safety when traveling long distances in vehicle, safety with inclement weather (hot/cold) and slick surfaces. Discussed possible concerns for post discharge with community involvement and possible options available. P: Will continue to see to address goals and plan of care.
--- NOTE | 2017-04-17 20:17 | NUR ---
Significant Event:PATIENT ALERT AND ORIENTED THIS SHIFT. VSS. TRANSFERS WITH 1 ASSIST, GAIT BELT AND WALKER. COMPLAINTS OF PAIN IN RIGHT LEG AND SHOULDER BUT REPORTS IT IS DECREASING SOME. TAKES NORCO 2 TABS PO FOR PAIN. LAST DOSE GIVEN AT 1515 THIS AFTERNOON. RESTS IN RECLINER WHEN NOT IN THERAPY. NO OTHER COMPLAINTS. Follow up:
--- NOTE | 2017-04-18 04:04 | NUR ---
A/O. [place]. VSS ON ROOM AIR. 1A PIVOT TRANSFER TO W/C WITH WALKER AND UP TO BBTHROOM. NORCO GIVEN x2 AT TIME OF NOTE. TOE TOUCH TO ON R) LEG. NO BM. ICE TO R) HIP.
--- NOTE | 2017-04-18 11:57 | NUR ---
D: TR progress note for 04/18/17. I: Pt seen for 2 units at 1100 for community integration skills building, and safety awareness. R: Pt seen for functional skills building working on community integration skills, safety and mobility to increase independence with community re-entry in anticipation for discharge back into community with family. Education and review done on energy conservation in community setting, safety with hand hygiene in community setting and with inclement weather (hot/cold). Discussed use of bathroom when out with opposite sex and no unisex bathroom available and reviewed concerns with handicapped accessible surfaces/buildings. P: Will continue to see to address goals and plan of care.
--- NOTE | 2017-04-18 13:47 | NUR ---
A-NUTRITION F/U CBW (04/17): 85.7 KG; EXACT SAME WT 04/06 AND 04/10 LABS REVIEWED: PREALB 12.0; UP FROM PREVIOUS 9.0 DIET RX: REGULAR. PO INTAKE MOSTLY 75-1005 W/OCCASIONAL 25-50%. D-NOT AT NUTRITION RISK; NO NUTRITION DX IDENTIFIED I-CONTINUE W/CURRENT DIET RX M/E-F/U PO INTAKE, WT, AND POC IN 7-9 DAYS
--- NOTE | 2017-04-18 15:31 | NUR ---
Significant Event: Patient alert and oriented. Up with 1 assist. Toe touch to right leg. Bruising to right side. Taking [place] for pain. Follow up: Home evaluation tomorrow.
--- NOTE | 2017-04-19 04:50 | NUR ---
Significant Event: A/O x3. transfers with walker and 1 assist. ttwb on right. ecchymosis to rt flank. scab to rt elbow. norco 2 tabs given last at 0341 for c/o pain to rt shoulder and upper leg. ice to leg. prefers pain meds q4h. to have home elval today. Follow up:
[2017-04-19 06:17] LABS: INR - (THERAPEUTIC) 3.31 (0.92-1.07); PROTIME 35.2 SECONDS (9.8-11.4)
--- NOTE | 2017-04-19 15:31 | NUR ---
Significant Event: PT A/O AND UP WITH ONE ASSIST AND WALKER. C/O RIGHT SHOULDER AND RT FLANK PAIN. NORCO GIVEN WITH GOOD RELIEF. HAD HOME EVALUATION TODAY. LEFT AT 1230 AND RETURNED AT 1430. PRESENT. ICE TO RT SHOULDER. Follow up:
--- NOTE | 2017-04-19 15:31 | NUR ---
D: OT home visit completed on 04/19/17. I: Patient seen 1x, from 12:30 to 14:10 for home visit assessment. Patient, Occupational therapist, Physical therapist, and Pt's were present. R: Patient completed the following tasks with the amount of assist listed. Also listed below are recommendations to increase safety and independence. BEDROOM: Pt plans to have hospital bed placed in dining room area as Pt's current bedroom is on 2nd floor of home. No bed mobility assessed during this evaluation. BATHROOM: Functional mobility - SBA with FWW Toilet transfer - CGA with FWW; toilet with riser: 21" height Shower transfer - No shower/tub available on main level of home. Pt plans to sponge bath until able to access 2nd level of home. Sink use - SBA with FWW Doorway access - SBA with FWW; 23.5" width doorway with 1" threshold. Must utilize a more narrow FWW to access bathroom doorway. Pt plans to leave narrow FWW near bathroom doorway for use in bathroom only and will use wider FWW to access remainder of home. RECOMMENDATIONS: Moved trash can to improve space for FWW in bathroom. Pt has ordered a toilet safety frame. KITCHEN: Functional mobility - SBA with w/c mobility using BUE to self-propel Chair transfer - Pt plans to use w/c for seating either at dining room table or breakfast bar. Pt will need to remove w/c foot pedals to allow for access to sit at dining room table. Refrigerator access - SBA from w/c level; provided instruction on optimal w/c positioning to improve access and reinforced importance of locking w/c brakes prior to functional reaching. RECOMMENDATIONS: Recommend use of w/c for seating during meals. Do not recommend use of swivel-style bar chair; Pt/spouse aware of recommendation. Pt's spouse plans to assist with IADL performance. Pt has FWW basket to assist with I/ADL item transport. Recommend use of w/c at computer desk and recommend removal of rolling computer chairs to allow more space and to promote Pt safety. LIVING ROOM: Functional mobility - SBA with FWW Chair transfer - SBA with FWW, Pt able to operate recliner legrest up/down without physical assist. 25" height with cushions already in place. Phone access - Pt has cell phone. RECOMMENDATIONS: Pt has large living room area rug. Provided instruction on safety with functional mobility and Pt demonstrates good awareness of area rug and technique to navigate FWW over rug. HOME ENTRY: Functional mobility - Dependent assist to enter/exit home from w/c seated position. Pt's was instructed in w/c management technique to guide Pt over threshold. Door access - w/c accessible. Stair negotiation - Pt ascends/descends 4 stairs with B)railings with CGA for safety. See PT note for details on stair negotiation. RECOMMENDATIONS: May move outdoor chairs/furniture PRN to allow for adequate space for self-propelling w/c across outdoor deck. EMERGENCY SITUATIONS: Phone Use - Intact Knowledge of emergency Number - Intact Safety and Judgement - Pt verbalizes intent to have spouse assist with I/ADLs and functional mobility. ADDITIONAL INFORMATION: Washer/Dryer use - Spouse will complete. Endurance Level - Adequate activity tolerance. Pt has option for using w/c for mobility within the home to conserve energy. Patient's home is wheelchair accessible, except for bathroom and home entry. Car transfer - Pt enters/exits personal vehicle 2x with CGA for safety using 4" step. Pt steps backwards up onto 4" step to access vehicle with verbal cues on transfer sequence and optimal hand placement. 1st car transfer-Pt utilized 4" step when exiting car and 2nd transfer-4" step was removed with Pt demonstrating improved independence without use of 4" block when exiting vehicle. Provided instruction to Pt/spouse on option for HandyBar to ease entry/exit to vehicle. RECOMMENDATIONS: Pt will benefit from spouse assist with I/ADLs and home health OT services. P: Patient does agree to complete the above listed recommendations and home modifications. Marisabel James OTR/L (04/19/17)
--- NOTE | 2017-04-20 02:43 | NUR ---
Significant Event: A/O x3. up to bathroom with 1 assist and walker. ttwb to right . norco 2 tabs given last at 0103, will offer again at 0500. to have shower and dress with OT this am. ecchymosis to rt flank, scab to rt elbow. had home visit on . request that PT look at his walker from home to see if it will work for him. has ice to rt upper leg for pain control. Follow up:
[2017-04-20 06:21] LABS: INR - (THERAPEUTIC) 3.38 (0.92-1.07); PROTIME 35.9 SECONDS (9.8-11.4)
--- NOTE | 2017-04-20 13:59 | NUR ---
Significant Event: Patient alert and oriented. Up with 1 assist. Toe touch to right leg. Taking [place] for pain. INR was 3.3 today. Order to hold Coumadin today.
--- NOTE | 2017-04-20 15:56 | NUR ---
D: Scalloper Team Conference Follow up for 04/17/17 I: Input from patient/family R: Met with: patient, family, Jennifer Bailey SOFTWARE RECRUITER Discussed rehab plan, patient progress, discharge plan and estimated length of stay of d/c in approx. 1 week. Patient/Family Preference: In agreement. Anticipated discharge disposition: home with support. Education completed: Education was completed. Assessment/Recommendation: Team recommends d/c next week. P: Case Coordination: Percy was admitted after a fractured hip. Has good family support. Planning to get patient a wheelchair and hospital bed. Will follow and assist as needed.
--- NOTE | 2017-04-21 02:42 | NUR ---
Significant Event:A/O. 1 assist pivot TTWB to RLE. VVS on room air. Requested ice pack for headache early evening. 2 [place] at HS for general pain. Weighed tonight at 86kg. [place], bilateral hearing aides. Meds whole with water. Pneumatics. Call lightin reach. Bed alarm on. Follow up:Plans to discharge on Sunday afternoon?
--- NOTE | 2017-04-21 13:38 | NUR ---
Significant Event: PATIENT UP 1 ASSIST, WALKER, GAIT BELT. TTWB TO RIGHT LEG. ALERT AND ORIENTED X3. COOPERATIVE WITH CARES. CONTINENT OF BOWEL AND BLADDER. CALLS APPROPRIATELY. WEARS SOFT COLLAR FOR COMFORT. ICE TO NECK AND RIGHT HIP. NO INR DRAWN TODAY. COUMADIN STARTED QDAY. NORCO 2 TABS PRN FOR PAIN, HAS TAKEN X1 THIS SHIFT. VITALS STABLE ON ROOM AIR. STILL REFUSING LASIX. TRACE EDEMA TO RIGHT LOWER LEG. HOPING TO DISCHARGE SUNDAY. Follow up:
--- NOTE | 2017-04-22 02:18 | NUR ---
Significant Event:A/O. 1 assist with gaitbelt and walker. Toe touch weight bearing to right lower extremity. [place], bilateral hearing aides. Meds whole with water. 2 Guys given at 0 for pain, right shoulder hurting at hat time. Kevin hose off at HS and pneumatic foot pumps on. Call light in reach, bed alarm on. Pleasant and cooperative. Follow up:
--- NOTE | 2017-04-22 15:23 | NUR ---
Significant Event: Alert and oriented x 3. Up with 1A walker and gait belt. TTWB to RLE. [place] 2 tabs PRN for pain. Soft collar on. Ice to neck and Right hip. Refused lasix this shift. Continent of bowel and bladder. Cooperative with cares. Follow up:
--- NOTE | 2017-04-23 04:18 | NUR ---
Significant Event:A/O. 1 assist transfer, toe touch weight bearing to right lower extremity. [place]IZ[place]. Wears bilateral hearing aides and glasses. VSS on room air. Kevin stockings daily. Call light in reach.Bed alarm on. Follow up:
[2017-04-23 06:00] LABS: INR - (THERAPEUTIC) 2.15 (0.92-1.07); PROTIME 22.7 SECONDS (9.8-11.4)
[2017-04-23 06:12] LABS: ALBUMIN 2.9 gm/dL (3.5-5.0); ALK PHOS 186 IU/L (33-138); ALT 20 IU/L (12-78); ANION GAP 10.8 (10.0-19.0); AST 20 IU/L (10-40); BLOOD UREA NITROGEN 8 mg/dL (6-24); CALCIUM 8.2 mg/dL (8.5-10.5); CHLORIDE 99 mMol/L (96-110); CO2 25 mMol/L (22-32); CREATININE 0.5 mg/dL (0.6-1.3); POTASSIUM 4.8 mMol/L (3.7-5.1); SODIUM 130 mMol/L (135-145); TOTAL BILIRUBIN 0.9 mg/dL (0.0-1.5); TOTAL PROTEIN 6.2 g/dL (6.0-8.4)
--- NOTE | 2017-04-23 14:07 | NUR ---
Significant Event: PATIENT UP 1 ASSIST, WALKER, TTWB TO RIGHT LEG. VITALS STABLE ON ROOM AIR. NORCO 2 TABS PRN FOR PAIN. TUMS PRN, PATIENT PREFERS THEM BEFORE MEALS. CONTINENT OF BOWEL AND BLADDER. FEEDS SELF WELL, MEDS WHOLE WITH WATER. HARD OF HEARING, HEARING AIDS BILATERALLY. SOFT COLLAR ON FOR COMFORT. CALLS APPROPRIATELY. HOME SUNDAY. Follow up:
--- NOTE | 2017-04-24 05:34 | NUR ---
Significant Event:Up with walker/gait belt and one assist with toe touch weight bear to rt. Uses ice to outer rt thigh and rt shoulder at times. C/o tenderness and deep soreness to shoulder/hip at times--given [place] 2 tabs twice--last dose at 0245. Has soft collar prn comfort. Home Wed. [place] and wears bilat hearing aides. Large amt bruising to rt hip/flank area fading and various hues. Follow up:Pain control with meds/ice pack.
--- NOTE | 2017-04-24 14:10 | NUR ---
Significant Event: Patient alert and oriented. Up with 1 assist. Toe touch weight bearing to right leg. Taking [place] for pain. Follow up: Plans on going home tomorrow.
--- NOTE | 2017-04-24 16:11 | NUR ---
D: TR progress note for 04/24/17. I: Pt seen for 1300 units at for community integration skills building, functional transfers, and safety awareness. R: Pt seen for functional skills building working on mobility, community skills and functional transfers in anticipation for discharge back into community with spouse. Pt transferred sit > stand from recliner mod I, pivoted to with walker SBA and transferred into mod I with good safety awareness. Application for handicapped parking completed along with information on where to mail and how to utilize once obtained. Discussed pt not operating motorized vehicle until Physician's approval and reviewed energy conservation skills in community setting which included operating electric carts at stores and use of handibus if needed. Pt had no questions or concerns at this time. P: Will discharge home tomorrow, 04/24/17.
--- NOTE | 2017-04-25 04:14 | NUR ---
Significant Event: PATIENT IS ALERT AND ORIENTED. VSS. USES CALL LIGHT APPROPRIATELY. VERY PLEASANT. PATIENT TAKES NORCO X2 TAB Q4H. LAST GIVEN AT 0220. Follow up: DISCHARGE HOME WITH SPOUSE TODAY.
[2017-04-25 06:19] LABS: INR - (THERAPEUTIC) 3.08 (0.92-1.07); PROTIME 32.7 SECONDS (9.8-11.4)
[2017-04-25] MEDS ORDERED: COLACE100 MG PO (10:36)
[2017-04-25] MEDS ORDERED: TUMS REGULAR ST1 TAB PO (10:43)
--- NOTE | 2017-04-25 12:20 | NUR ---
D: TR progress note for 04/25/17. I: Pt seen for 2 units at 1100 in group session for education on safety when around pets/animals, functional mobility, leisure education and coping strategies. R: Pt seen for functional skills building working on relaxation techniques, stress/pain management, and continued education on coping skills using animals during Animal Assisted Therapy to increase safety awareness when around pets. Pt completed functional communication skills independently which included personal introduction self and about past family pets. Pt was SBA for handling/maneuvering animals utilizing BUE with good interaction with staff/volunteers. Education done on safety with ambulation/mobility in homes when around animals, safety with possibility of poor skin integrity and utilizing pets to assist with coping and stress/pain management when opportunity available. Pt transferred sit > stand from mod I, ambulated to recliner with walker mod I and mod I for transfer into chair. P: Will continue to see to address goals and plan of care.
--- NOTE | 2017-04-25 13:27 | NUR ---
A-NUTRITION F/U WT IS STABLE. PREALB IS 14.0; THIS IS UP FROM PREVIOUS 12.0 DIET RX: REGULAR. PO INTAKE 75-100% PLAN IS FOR PT TO D/C HOME TODAY D-NOT AT NUTRITION RISK; NO NUTRITION DX IDENTIFIED I-CONTINUE W/CURRENT DIET RX M/E-WILL ASSIST NEEDED
--- NOTE | 2017-04-25 13:56 | NUR ---
Significant Event: Patient alert and oriented. Up with 1 assist with toe touch weight bearing to right leg. Taking [place] for pain. Patient to go home this afternoon with spouse. Follow up:
--- NOTE | 2017-05-03 10:20 | NUR ---
D: Felting Machine Operator Helper Team Conference Follow up for 04/24/17 and Discharge Note for 04/25/17 I: Input from patient/family R: Met with: patient, , Dr. Muhammad, Jennifer Brandt VICE PRESIDENT OF NEWS Discussed rehab plan, patient progress, discharge plan and estimated length of stay of d/c planned on 04/25/17 Patient/Family Preference: patient and are in agreement. Anticipated discharge disposition: home with outpatient therapy. Education completed: Education was completeted with patient regarding length of stay, progress in thearapy and d/c plan. Assessment/Recommendation: Team recommends d/c to home. P: Case Coordination: Arranged for wheelchair and hospital bed for home for Percy through patient's insurance through [facility]. Also, Dr. Muhammad filled out [place] information for patient's to take a few weeks off to help at home. Patient will have outpatient therapy services. No other needs identified at this time. Will call patient next week to see how he is doing post discharge.
== END 2017-04-25 15:05 | disposition disaster alternative care site (69) | DRG 560 ==
LOC: GIRP 10:46 → GSNF 04-10 10:10 → GIRP 04-10 10:11
PROVIDERS: Family Medicine; ADMIT Physical Medicine & Rehabilitation
PROC: F08Z4ZZ Home Management Treatment (ICD-10-PCS; principal; 2017-04-06)
PROC: F07Z8ZZ Transfer Training Treatment (ICD-10-PCS; principal; 2017-04-06)
PROC: F07M6ZZ Therapeutic Exercise Treatment of Musculoskeletal System - Whole Body (ICD-10-PCS; principal; 2017-04-06)
DX: S32.401D Unspecified fracture of right acetabulum, subsequent encounter for fracture with routine healing (principal); I50.32 Chronic diastolic (congestive) heart failure; I11.0 Hypertensive heart disease with heart failure; I48.91 Unspecified atrial fibrillation; Z79.01 Long term (current) use of anticoagulants; I25.10 Atherosclerotic heart disease of native coronary artery without angina pectoris; E78.5 Hyperlipidemia, unspecified; M13.812 Other specified arthritis, left shoulder; M13.811 Other specified arthritis, right shoulder; M81.0 Age-related osteoporosis without current pathological fracture; Z95.0 Presence of cardiac pacemaker; R26.9 Unspecified abnormalities of gait and mobility; R73.01 Impaired fasting glucose; S22.41XD Multiple fractures of ribs, right side, subsequent encounter for fracture with routine healing; W18.30XD Fall on same level, unspecified, subsequent encounter; D64.9 Anemia, unspecified; R79.1 Abnormal coagulation profile